=== PATIENT | female | born 1995 | race Caucasian/White ===

== ENCOUNTER 2018-08-01 01:31 | Emergency (ER) | payer OTHER ==
[~2018-08-01] VITALS: Ht 162.6 cm; Wt 72.7 kg
[2018-08-01 01:35] VITALS: Ht 162.6 cm; Wt 72.7 kg
[2018-08-01] MEDS ORDERED: LORAZEPAM 2 MG INJ IV STA (01:50)
[2018-08-01] MEDS ORDERED: SOD CHLORIDE 0.9% 500 ML IV STA (01:50)
[2018-08-01] MEDS ORDERED: LEVETIRACETAM 1000 MG (PMX) 100 ML IVPB STA (01:50)
[2018-08-01] MEDS ORDERED: LEVE500T8 PO (02:34)
[2018-08-01] MEDS ORDERED: KETOROLAC 30 MG INJ IV STA (03:08)
[2018-08-01 04:00] VITALS: BP 129/82; PULSE 89; RESP 19
--- NOTE | 2018-08-04 23:18 | ERD ---
ER Documentation Chief Complaint Chief Complaint BIB RA81 s/p seizure while at home, hx of - on keppra HPI 23-year-old female right emergency room is in the procedure well at home. Patient has a history of seizures. She is currently on Keppra. Denies fevers chills nausea vomiting no tongue biting or incontinence. No focal neurologic complaints at this time. ROS All systems reviewed and are negative except as per history of present illness. Medications Home Meds Reported Medications Levetiracetam* (Levetiracetam*) 500 Mg Tablet, 500 MG PO BID, TAB 08/01/18 Allergies Allergies: Coded Allergies: No Known Allergy (Verified Allergy, Unknown, 07/31/07) PMhx/Soc Medical and Surgical Hx: pt denies Surgical Hx History of Surgery: No Anesthesia Reaction: No Hx Neurological Disorder: Yes (SEIZURES) Hx Respiratory Disorders: No Hx Cardiac Disorders: No Hx Psychiatric Problems: No Hx Miscellaneous Medical Probl: No Hx Alcohol Use: No Hx Substance Use: No Hx Tobacco Use: No Smoking Status: Never smoker Physical Exam Vitals Vital Signs Date Temp Pulse Resp B/P (MAP) Pulse Ox O2 O2 Flow FiO2 Time Delivery Rate 08/01/18 98.6 89 19 129/82 100 Room Air 04:00 (98) 08/01/18 98.6 81 16 119/87 99 01:35 (98) Physical Exam Const: No acute distress Head: Atraumatic Eyes: Normal Conjunctiva ENT: Normal External Ears, Nose and Mouth. Neck: Full range of motion. No meningismus. Resp: Clear to auscultation bilaterally Cardio: Regular rate and rhythm, no murmurs Abd: Soft, non tender, non distended. Normal bowel sounds Skin: No petechiae or rashes Back: No midline or flank tenderness Ext: No cyanosis, or edema Neur: Awake and alert Psych: Normal Mood and Affect Result Diagram: 08/01/1820308/01/18203 Results 24 hrs Laboratory Tests Test 08/01/18 02:04 White Blood Count 7.6 10^3/ul Red Blood Count 4.82 10^6/ul Hemoglobin 13.9 g/dl Hematocrit 40.8 % Mean Corpuscular Volume 84.6 fl Mean Corpuscular Hemoglobin 28.8 pg Mean Corpuscular Hemoglobin Concent 34.1 g/dl Red Cell Distribution Width 12.6 % Platelet Count 265 10^3/UL Mean Platelet Volume 10.4 fl Immature Granulocytes % 0.100 % Neutrophils % 56.0 % Lymphocytes % 34.5 % Monocytes % 7.6 % Eosinophils % 1.4 % Basophils % 0.4 % Nucleated Red Blood Cells % 0.0 /100WBC Immature Granulocytes # 0.010 10^3/ul Neutrophils # 4.3 10^3/ul Lymphocytes # 2.6 10^3/ul Monocytes # 0.6 10^3/ul Eosinophils # 0.1 10^3/ul Basophils # 0.0 10^3/ul Nucleated Red Blood Cells # 0.0 10^3/ul Sodium Level 139 mmol/L Potassium Level 3.8 mmol/L Chloride Level 102 mmol/L Carbon Dioxide Level 24 mmol/L Anion Gap 13 Blood Urea Nitrogen 11 mg/dl Creatinine 0.62 mg/dl Est Glomerular Filtrat Rate mL/min > 60 mL/min Glucose Level 88 mg/dl Calcium Level 9.3 mg/dl Current Medications Medications Dose Sig/Price Start Time Status Last (Trade) Ordered Route PRN Stop Time Admin Dose Reason Admin Sodium 500 ml @ Q1H STAT 08/01/18 DC 08/01/18 Chloride 500 mls/hr IV 01:50 02:12 08/01/18 02:49 Lorazepam 1 mg ONCE STAT 08/01/18 DC 08/01/18 (Ativan) IV 01:50 02:03 08/01/18 01:56 100 ml @ ONCE STAT 08/01/18 DC 08/01/18 Levetiracetam 400 mls/hr IVPB 01:50 02:04 08/01/18 02:04 Ketorolac 30 mg ONCE STAT 08/01/18 DC 08/01/18 Tromethamine IV 03:08 04:00 (Toradol) 08/01/18 03:09 Procedures/MDM Medical decision make: Patient with seizure disorder. Treated with Ativan and a dose of Keppra intravenously. Follow-up with PCP. Return for worsening symptoms or seizure activity Departure Diagnosis: Primary Impression: Seizure disorder Condition: Stable Patient Instructions: Seizure, Recurrent [Adult] HENRIETTA TABARES Aug 04, 2018 23:18
== END 2018-08-01 04:03 | disposition home or self-care (01) ==
LOC: E/R 01:31
DX: G40.909 Epilepsy, unspecified, not intractable, without status epilepticus (principal); R40.2142 Coma scale, eyes open, spontaneous, at arrival to emergency department; R40.2362 Coma scale, best motor response, obeys commands, at arrival to emergency department; R40.2252 Coma scale, best verbal response, oriented, at arrival to emergency department
CPT/HCPCS: 80048; 85025; J1885; J1953; J2060; J7040; 36415; 96374; 96375

== ENCOUNTER 2018-08-11 13:09 | Emergency (ER) | payer OTHER ==
[~2018-08-11] VITALS: Ht 160 cm; Wt 74.0 kg
[~2018-08-11 13:09] MED LIST: LEVE500T8 PO
[2018-08-11 13:13] VITALS: BP 130/65; PULSE 62; RESP 18; Ht 160 cm; Wt 74.0 kg
[2018-08-11] MEDS ORDERED: LEVE-5 PO (13:57)
--- NOTE | 2018-08-11 14:59 | ERD ---
ER Documentation Chief Complaint Chief Complaint needs keppra refil, lost insurance coverage, last sz last week HPI 23-year-old female presenting with request for Keppra refill. Patient lost her insurance and is unable to be seen by the primary doctor before August 22. She takes 500 mg of Keppra twice daily. She took 1 pill yesterday 1 pill today however has not been up-to-date on her normal doses. Last seizure was last week. Medical history seizures. NKDA. Surgical history denies. Social history denies ROS All systems reviewed and are negative except as per history of present illness. Medications Home Meds Active Scripts Levetiracetam* (Keppra*) 500 Mg Tablet, 500 MG PO BID, #60 TAB Prov:RICHARD MAYFIELD PA-C 08/11/18 Reported Medications Levetiracetam* (Levetiracetam*) 500 Mg Tablet, 500 MG PO BID, TAB 08/01/18 Allergies Allergies: Coded Allergies: No Known Allergy (Verified Allergy, Unknown, 07/31/07) PMhx/Soc History of Surgery: No Anesthesia Reaction: No Hx Neurological Disorder: No Hx Respiratory Disorders: No Hx Cardiac Disorders: No Hx Psychiatric Problems: No Hx Miscellaneous Medical Probl: No Hx Alcohol Use: No Hx Substance Use: No Hx Tobacco Use: No Smoking Status: Never smoker FmHx Family History: No diabetes, No coronary disease, No other Physical Exam Vitals Vital Signs Date Temp Pulse Resp B/P (MAP) Pulse Ox O2 O2 Flow FiO2 Time Delivery Rate 08/11/18 98.7 62 18 130/65 100 13:13 (86) Physical Exam GENERAL: The patient is well-appearing, well-nourished, in no acute distress HEENT: Atraumatic. Conjunctivae are pink. Pupils equal, round, and reactive to light. There is no scleral icterus. Tympanic membranes clear bilaterally. Oropharynx clear. NECK: C-spine is soft and supple. There is no meningismus. There is no cervical lymphadenopathy. CHEST: Clear to auscultation bilaterally. There are no rales, wheezes or rhonchi. HEART: Regular rate and rhythm. No murmurs, clicks, rubs or gallops. Procedures/MDM MDM: 23-year-old female presenting for refill of her Keppra medication. Refill was given. Patient was told symptoms change or worsen to immediately return to the ER. Patient was recommended to follow-up with primary as previously planned by 22 August. All questions answered at discharge Departure Diagnosis: Primary Impression: Encounter for medication refill Condition: Stable Patient Instructions: Taking Medicine Safely Referrals: COMM[facility]ITY CLINICS YOU HAVE RECEIVED A MEDICAL SCREENING EXAM AND THE RESULTS INDICATE THAT YOU DO NOT HAVE A CONDITION THAT REQUIRES URGENT TREATMENT IN THE EMERGENCY DEPARTMENT. FURTHER EVALUATION AND TREATMENT OF YOUR CONDITION CAN WAIT UNTIL YOU ARE SEEN IN YOUR DOCTORS OFFICE WITHIN THE NEXT 1-2 DAYS. IT IS YOUR RESPONSIBILITY TO MAKE AN APPOINTMENT FOR FOLOW-UP CARE. IF YOU HAVE A PRIMARY DOCTOR --you should call your primary doctor and schedule an appointment IF YOU DO NOT HAVE A PRIMARY DOCTOR YOU CAN CALL OUR PHYSICIAN REFERRAL HOTLINE AT IF YOU CAN NOT AFFORD TO SEE A PHYSICIAN YOU CAN CHOSE FROM THE FOLLOWING [facility] CLINICS [facility] [address] [facility]. [facility] [address] [facility] [facility] [address] [facility] [address] [facility] [facility] [address] [facility]. [facility]. [address] Additional Instructions: FOLLOW UP WITH YOUR PRIMARY CARE PHYSICIAN TOMORROW.Return to this facility if you are not improving as expected. RICHARD MAYFIELD PA-C Aug 11, 2018 14:58
== END 2018-08-11 14:37 | disposition home or self-care (01) ==
LOC: FTE 13:09
DX: Z76.0 Encounter for issue of repeat prescription (principal)
CPT/HCPCS: 99281

== ENCOUNTER 2018-10-08 09:13 | Emergency (ER) | payer OTHER ==
[~2018-10-08] VITALS: Ht 165.1 cm; Wt 72.8 kg
[~2018-10-08 09:13] MED LIST changes: +LEVE-5 PO
[2018-10-08 09:29] VITALS: Ht 165.1 cm; Wt 72.8 kg
[2018-10-08] MEDS ORDERED: LEVE-5 PO (11:23)
--- NOTE | 2018-10-08 11:25 | ERD ---
ER Documentation Chief Complaint Chief Complaint medication refill - keppra HPI 23-year-old female presents requesting a refill of her Keppra for seizure disorder. She has had seizures for approximately 7 years with undetermined etiology. She has had EEG and evaluations at [facility] but she no longer has [facility]. She has appointment pending with her primary doctor for her new insurance. Her last seizure was 2 months ago although she had run out of medications at that time. She takes Keppra 500 mg twice a day. Denies current complaints. ROS All systems reviewed and are negative except as per history of present illness. Medications Home Meds Active Scripts Levetiracetam* (Keppra*) 500 Mg Tablet, 500 MG PO BID, #60 TAB Prov:JACKY ALFARO MD 10/08/18 Levetiracetam* (Keppra*) 500 Mg Tablet, 500 MG PO BID, #60 TAB Prov:RICHARD MAYFIELD PA-C 08/11/18 Reported Medications Levetiracetam* (Levetiracetam*) 500 Mg Tablet, 500 MG PO BID, TAB 08/01/18 Allergies Allergies: Coded Allergies: No Known Allergy (Verified Allergy, Unknown, 07/31/07) PMhx/Soc History of Surgery: No Anesthesia Reaction: No Hx Neurological Disorder: No Hx Respiratory Disorders: No Hx Cardiac Disorders: No Hx Psychiatric Problems: No Hx Miscellaneous Medical Probl: No Hx Alcohol Use: No Hx Substance Use: No Hx Tobacco Use: No FmHx Family History: No diabetes, No coronary disease, No other Physical Exam Vitals Vital Signs Date Temp Pulse Resp B/P (MAP) Pulse Ox O2 O2 Flow FiO2 Time Delivery Rate 10/08/18 98.3 54 19 140/65 100 09:29 (90) Physical Exam Const: No acute distress Head: Atraumatic Eyes: Normal Conjunctiva ENT: Normal External Ears, Nose and Mouth. Neck: Full range of motion. No meningismus. Resp: Clear to auscultation bilaterally Cardio: Regular rate and rhythm, no murmurs Abd: Soft, non tender, non distended. Normal bowel sounds Skin: No petechiae or rashes Back: No midline or flank tenderness Ext: No cyanosis, or edema Neur: Awake and alert Psych: Normal Mood and Affect Procedures/MDM Patient presents for a request for refill of her Keppra with essentially normal exam. She is well-appearing. She will discharged home with a prescription of Keppra, recommendations for continued primary care follow-up and neurology ev aluation. She should return for worsening symptoms as directed and aftercare instructions. The patient was stable with no new complaints during the ER course. Clinically, there is no current evidence to suggest meningitis, sepsis, acute abdomen, pneumonia, stroke, acute coronary syndrome, pulmonary embolism, aortic dissection or any other emergent condition appearing to require further evaluation or hospitalization. Patient counseled regarding my diagnostic impression and care plan. Prior to discharge all questions answered. Pt agrees with treatment plan and understands strict return precautions. Pt is instructed to follow up with primary care provider within 24-48 hours. Precautionary instructions provided including instructions to return to the ER if not improving or for any worsening or changing symptoms or concerns. Disclaimer: Inadvertent spelling and grammatical errors are likely due to EHR/dictation software use and do not reflect on the overall quality of patient care. Also, please note that the electronic time recorded on this note does not necessarily reflect the actual time of the patient encounter. Departure Diagnosis: Primary Impression: Encounter for medication refill Additional Impression: Seizure disorder Condition: Stable Patient Instructions: Taking Medicine Safely, Seizure, Recurrent [Adult] Referrals: DOCTOR,NOT ON STAFF (PCP) COMM[facility] CLINICS YOU HAVE RECEIVED A MEDICAL SCREENING EXAM AND THE RESULTS INDICATE THAT YOU DO NOT HAVE A CONDITION THAT REQUIRES URGENT TREATMENT IN THE EMERGENCY DEPARTMENT. FURTHER EVALUATION AND TREATMENT OF YOUR CONDITION CAN WAIT UNTIL YOU ARE SEEN IN YOUR DOCTORS OFFICE WITHIN THE NEXT 1-2 DAYS. IT IS YOUR RESPONSIBILITY TO MAKE AN APPOINTMENT FOR FOLOW-UP CARE. IF YOU HAVE A PRIMARY DOCTOR --you should call your primary doctor and schedule an appointment IF YOU DO NOT HAVE A PRIMARY DOCTOR YOU CAN CALL OUR PHYSICIAN REFERRAL HOTLINE AT IF YOU CAN NOT AFFORD TO SEE A PHYSICIAN YOU CAN CHOSE FROM THE FOLLOWING [facility] CLINICS [facility] [address] [facility] [address] [facility] [address] [facility] [address] [facility]. [facility] [address] [facility]. [facility] [address] Additional Instructions: See primary care doctor and neurology for further evaluation and treatment and primary care. Recheck otherwise for new or worsening symptoms. JACKY ALFARO MD Oct 08, 2018 11:25
[2018-10-08 12:30] VITALS: BP 132/68; PULSE 58; RESP 18
== END 2018-10-08 12:30 | disposition home or self-care (01) ==
LOC: FTE 09:13
DX: G40.909 Epilepsy, unspecified, not intractable, without status epilepticus (principal)
CPT/HCPCS: 99281